=== PATIENT | male | born 1945 | race Caucasian/White ===

== ENCOUNTER 2017-01-17 14:00 | Inpatient (IN) | payer OTHER ==
[~2017-01-17] VITALS: Ht 165.1 cm; Wt 69.1 kg
[2017-01-22] VITALS (13 sets, daily range): BP systolic 114–177; BP diastolic 57–81
[2017-01-22] MEDS ORDERED: SODIUM CHLORIDE 0.9% 1,000 ML IV ONE ×3 (10:08→10:30)
[2017-01-22] MEDS ORDERED: AMLO2.5T PO (11:32)
[2017-01-22] MEDS ORDERED: TAMS0.4C32 PO (11:32)
[2017-01-22] MEDS ORDERED: CARV3 PO (11:32)
[2017-01-22] MEDS ORDERED: LISI-661 PO (11:32)
[2017-01-22] MEDS ORDERED: LEVO50 PO (11:32)
[2017-01-22] MEDS ORDERED: ASPI-1182 PO (11:32)
[2017-01-22] MEDS ORDERED: FISH1CAP27 PO (11:32)
[2017-01-22] MEDS ORDERED: FERR-89 PO (11:32)
[2017-01-22] MEDS ORDERED: ROSU20 PO (11:32)
[2017-01-22] MEDS ORDERED: CLOP75 PO (11:32)
[2017-01-22 11:46] LABS: BASOPHILS # (AUTO) 0.06 K/uL (0.00-0.20); EOSINOPHILS # (AUTO) 0.97 K/uL (0.00-0.70); EOSINOPHILS % (AUTO) 14.99 % (1.0-6.0); HEMATOCRIT 33.5 % (41-53); HEMOGLOBIN 11.3 g/dL (13.5-17.5); LYMPHOCYTES # (AUTO) 1.1 K/uL (1.0-4.8); LYMPHOCYTES % (AUTO) 16.3 % (22.0-44.0); MEAN CORPUSCULAR HEMOGLOBIN 31.3 pg (26.0-34.0); MEAN CORPUSCULAR HGB CONC 33.6 G/dL (31.0-37.0); MEAN CORPUSCULAR VOLUME 93 fL (80-100); MONOCYTES # (AUTO) 0.4 K/uL (0.1-1.0); MONOCYTES % (AUTO) 6.5 % (2.0-9.0); NEUTROPHILS % (AUTO) 61.3 % (40.0-70.0); PLATELET COUNT (AUTO) 222 K/uL (150-450); RED CELL DISTRIBUTION WIDTH 16.4 % (11.5-14.5); WHITE BLOOD COUNT (AUTO) 6.5 K/uL (4.5-11.0)
[2017-01-22 11:56] LABS: PROTHROMBIN TIME 10.9 SEC (9.4-11.6)
[2017-01-22 11:59] LABS: CREATININE 1.6 mg/dL (0.60-1.30); POTASSIUM 5.2 mmol/L (3.5-5.1)
[2017-01-22] MEDS ORDERED: ONDANSETRON HCL 4 MG/2 ML VIAL IVP ONE (12:00)
[2017-01-22] MEDS ORDERED: GLYCOPYRROLATE 0.2 MG/ML VIAL IVP ONE (12:00)
[2017-01-22] MEDS ORDERED: METOCLOPRAMIDE HCL 5 MG/ML 2 ML VIAL IVP ONE (12:00)
[2017-01-22] MEDS ORDERED: MIDAZOLAM HCL 2 MG/2 ML VIAL IVP ONE (12:00)
[2017-01-22] MEDS ORDERED: SUCCINYLCHOLINE CHLORIDE 20 MG/ML 10 ML VIAL IVP ONE (12:00)
[2017-01-22] MEDS ORDERED: ALBUTEROL SULFATE HFA 90 MCG/PUFF 8 GM INHALER IH ONE (12:00)
[2017-01-22] MEDS ORDERED: FentaNYL CITRATE-PF 100 MCG/2 ML VIAL IVP ONE (12:00)
[2017-01-22] MEDS ORDERED: LIDOCAINE HCL/PF 2% 5 ML VIAL INJ ONE (12:00)
[2017-01-22] MEDS ORDERED: PROPOFOL 1% 20 ML VIAL IVP ONE (12:00)
[2017-01-22] MEDS ORDERED: PHENYLEPHRINE HCL 10 MG/ML VIAL IVP ONE (12:00)
[2017-01-22 12:04] LABS: ALBUMIN 3.8 g/dL (3.4-5.0); BILIRUBIN,TOTAL 0.3 mg/dL (0.1-1.0); MAGNESIUM 2.1 mg/dL (1.80-2.40); TOTAL PROTEIN, SERUM 7.8 g/dL (6.4-8.2)
[2017-01-22] MEDS ORDERED: 0.9% SODIUM CHLORIDE 10 ML SYRINGE IVP ONE (12:15)
[2017-01-22] MEDS ORDERED: PROPOFOL 1000 MG/ISO-OSM 100 ML IV ONE (12:27)
[2017-01-22] MEDS ORDERED: KETAMINE HCL 50 MG/ML 10 ML VIAL ONE (12:27)
[2017-01-22] MEDS ORDERED: HEPARIN SODIUM 1000 UNITS/NS 500 ML ONE (13:03)
[2017-01-22] MEDS ORDERED: IOHEXOL 300 MG/ML 50 ML VIAL ONE (13:08)
[2017-01-22] MEDS ORDERED: LIDOCAINE HCL/PF 1% 30 ML VIAL ONE ×2 (13:08→14:02)
[2017-01-22] MEDS ORDERED: IODIXANOL 320 MG/ML 50 ML VIAL ONE (14:02)
[2017-01-22] MEDS ORDERED: LIDOCAINE HCL/PF 1% 30 ML VIAL INJ ONE (14:45)
[2017-01-22] MEDS ORDERED: BUPIVACAINE LIPOSOME/PF 1.3%-13.3MG/ML SUSPENSION 20 ML VIAL INJ ONE (14:45)
[2017-01-22] MEDS ORDERED: OxyCODONE HCL/ACETAMINOPHEN 5-325 MG TABLET PO PRN (16:00)
[2017-01-22] MEDS ORDERED: INFLUENZA VIRUS VACCINE QVS 2017-18 (3YR+)/PF 60 MCG/0.5 ML SYRINGE IM ONE (17:45)
[2017-01-22] MEDS: CeFAZolin 1 GM/DEXTROSE 50 ML IV SCH (20:03)
[2017-01-22] MEDS ORDERED: SODIUM CHLORIDE 0.9% 100 ML ONE (20:03)
[2017-01-23] VITALS (8 sets, daily range): BP systolic 113–153; BP diastolic 60–85
[2017-01-23] MEDS: CeFAZolin 1 GM/DEXTROSE 50 ML IV SCH ×2 (01:47→09:04)
[2017-01-23] MEDS ORDERED: LEVOTHYROXINE SODIUM 50 MCG TABLET PO SCH (06:30)
[2017-01-23] MEDS ORDERED: FERROUS SULFATE 325 MG EC TABLET PO SCH (08:00)
[2017-01-23] MEDS ORDERED: OXYGEN THERAPY IH SCH (08:00)
[2017-01-23] MEDS ORDERED: AmLODIPine BESYLATE 2.5 MG TABLET PO SCH (09:00)
[2017-01-23] MEDS ORDERED: CARVEDILOL 3.125 MG TABLET PO SCH (09:00)
[2017-01-23] MEDS ORDERED: ROSUVASTATIN CALCIUM 20 MG TABLET PO SCH (09:00)
[2017-01-23] MEDS ORDERED: LISINOPRIL 10 MG TABLET PO SCH (09:00)
[2017-01-23] MEDS ORDERED: ASPIRIN 81 MG CHEWABLE TABLET PO SCH (09:00)
[2017-01-23] MEDS ORDERED: CLOPIDOGREL BISULFATE 75 MG TABLET PO SCH (09:00)
[2017-01-23] MEDS ORDERED: TAMSULOSIN HCL 0.4 MG CAPSULE PO SCH (09:00)
[2017-01-23] MEDS ORDERED: ACET1TAB12 PO (18:40)
== END 2017-01-23 20:35 | disposition home or self-care (01) | DRG 245 ==
LOC: 5S 01-22 11:01
PROVIDERS: ADMIT Internal Medicine Clinical Cardiac Electrophysiology; ATTEND Internal Medicine Clinical Cardiac Electrophysiology
PROC: 0JH639Z Insertion of Cardiac Resynchronization Defibrillator Pulse Generator into Chest Subcutaneous Tissue and Fascia, Percutaneous Approach (ICD-10-PCS; principal; 2017-01-22)
PROC: 02JA3ZZ Inspection of Heart, Percutaneous Approach (ICD-10-PCS; 2017-01-22)
PROC: B51M1ZZ Fluoroscopy of Right Upper Extremity Veins using Low Osmolar Contrast (ICD-10-PCS; 2017-01-22)
DX: I44.7 Left bundle-branch block, unspecified (principal); I50.22 Chronic systolic (congestive) heart failure; I69.351 Hemiplegia and hemiparesis following cerebral infarction affecting right dominant side; I11.0 Hypertensive heart disease with heart failure
CPT/HCPCS: 33249; 36005; 71020; 76000; 83735; 87081; 93005; C9290; J0330; J0690; J1644; J2250; J2370; J2405; J2704; J2765; J3010; J3490; J3535; J7030; J7050; Q9967

== ENCOUNTER → 2017-02-27 | Outpatient (CLI) | payer OTHER ==
[~2017-02-27] MED LIST: ACET1TAB12 PO; AMLO2.5T PO; ASPI-1182 PO; CARV3 PO; CLOP75 PO; FERR-89 PO; FISH1CAP27 PO; LEVO50 PO; LISI-661 PO; ROSU20 PO; TAMS0.4C32 PO
[2017-02-27 14:56] VITALS: BP 119/56
== END | disposition home or self-care (01) ==
LOC: SRCNTR 10:59
PROVIDERS: ATTEND Internal Medicine Clinical Cardiac Electrophysiology
DX: Z45.02 Encounter for adjustment and management of automatic implantable cardiac defibrillator (principal); I11.0 Hypertensive heart disease with heart failure; I50.22 Chronic systolic (congestive) heart failure; I44.7 Left bundle-branch block, unspecified; Z79.899 Other long term (current) drug therapy; Z95.810 Presence of automatic (implantable) cardiac defibrillator
CPT/HCPCS: G0463